=== PATIENT | female | born 1995 | race Caucasian/White ===

== ENCOUNTER 2022-12-01 11:55 | Emergency (ER) | payer OTHER ==
[2022-12-01] MEDS ORDERED: Cyclobenzaprine 10 MG Tab PO ONE (13:38)
[2022-12-01] MEDS ORDERED: Ketorolac 10 MG Tab PO ONE (13:51)
[2022-12-01] MEDS ORDERED: Acetaminophen/HYDROcodone 325-5 MG Tab PO ONE (13:54)
== END 2022-12-01 14:25 | disposition home or self-care (01) ==
LOC: VM.ED 11:55
DX: S22.32XA Fracture of one rib, left side, initial encounter for closed fracture (principal); V49.50XA Passenger injured in collision with unspecified motor vehicles in traffic accident, initial encounter
CPT/HCPCS: 70450; 71100-LT; 72125; 99284; A9270-GY